=== PATIENT | male | born 1995 | race Caucasian/White ===

== ENCOUNTER 2021-05-06 09:27 | Emergency (ER) | payer BC, OTHER ==
[2021-05-06 09:30] VITALS: BP 129/57; PULSE 68; TEMP 97.6; BMI 35.5
[2021-05-06 11:12] LABS: ALBUMIN 3.8 g/dl (3.4-5.0); BILIRUBIN,TOTAL 0.4 mg/dl (0.2-1); CALCIUM 9.1 mg/dl (8.5-10); CREATININE 0.6 mg/dl (0.55-1.3)
[2021-05-06 15:08] LABS: BASO % 0.6 % (0-2.0); EOS % 1.7 % (0-4.5); HEMATOCRIT 44.4 % (35.4-49); HEMOGLOBIN 15.1 GM/dL (11.7-16.9); MCH 31.1 pg (25.7-33.7); MCHC 34.1 g/dl (32.0-35.9); MEAN CELL VOLUME 91.3 fl (80-96); MEAN PLT VOLUME 8.2 fl (7.5-11.1); MONO % 8.4 % (3.8-10.2); NEUT % 75.3 % (42.8-82.8); PLATELET COUNT 279 10^3/uL (134-434); RBC 4.87 M/mm3 (4.00-5.60); RDW 13.4 % (11.9-15.9); WHITE BLOOD COUNT 14.1 K/mm3 (4.0-10.0)
== END 2021-05-06 11:35 | disposition home or self-care (01) ==
LOC: FER 09:27
DX: R07.1 Chest pain on breathing (principal)
CPT/HCPCS: 36415; 71046-TC-FY; 80053; 84484; 85025; 93005; 99285-25; C9803; U0003; U0005

== ENCOUNTER 2022-12-28 15:04 | Emergency (ER) | payer BC ==
[2022-12-28 15:34] VITALS: BMI 29.2
[2022-12-28 16:25] LABS: BASO % 0.9 % (0-2.0); EOS % 0.4 % (0-4.5); HEMATOCRIT 48.5 % (35.4-49); HEMOGLOBIN 16.6 GM/dL (11.7-16.9); LYMPH % 14.2 % (8-40); MCH 31.1 pg (25.7-33.7); MCHC 34.2 g/dl (32.0-35.9); MEAN CELL VOLUME 90.8 fl (80-96); MEAN PLT VOLUME 8.6 fl (7.5-11.1); MONO % 9.7 % (3.8-10.2); NEUT % 74.8 % (42.8-82.8); PLATELET COUNT 433 10^3/uL (134-434); RBC 5.35 M/mm3 (4.00-5.60); RDW 13.6 % (11.9-15.9); WHITE BLOOD COUNT 14.8 K/mm3 (4.0-10.0)
[2022-12-28 16:42] LABS: INR 1.24 (0.83-1.09); PROTHROMBIN TIME (PATIENT) 14.4 SEC (9.7-13.0)
[2022-12-28 16:44] LABS: ACTIVATED PTT 31.4 SECONDS (25.2-36.5)
[2022-12-28 16:59] LABS: POTASSIUM 4.6 mmol/L (3.5-5.1)
[2022-12-28 17:00] LABS: CALCIUM 9.4 mg/dL (8.5-10.1)
[2022-12-28 17:01] LABS: ALBUMIN 3.5 g/dl (3.4-5.0); BLOOD UREA NITROGEN 15.4 mg/dL (7-18)
[2022-12-28 17:04] LABS: CREATININE 0.9 mg/dL (0.55-1.3)
[2022-12-28 17:05] LABS: BILIRUBIN,TOTAL 0.8 mg/dL (0.2-1)
[2022-12-28 17:06] LABS: TOT PROT 7.1 g/dl (6.4-8.2)
[2022-12-28 19:00] VITALS: PULSE 122; RESP 22
[2022-12-28 19:11] VITALS: BP 154/72; TEMP 97.4
== END 2022-12-28 19:15 | disposition short-term general hospital (02) ==
LOC: JER 15:04
DX: R06.02 Shortness of breath (principal); I77.810 Thoracic aortic ectasia; R06.00 Dyspnea, unspecified; Z20.822 Contact with and (suspected) exposure to COVID-19
CPT/HCPCS: 0241U-QW; 36415; 80053; 84484; 85025; 85610; 85730; 87040; 93005; 93010; 99285-25